=== PATIENT | male | born 1980 | race African-American/Black ===

== ENCOUNTER 2018-02-06 15:25 | Emergency (ER) | payer SELFPAY ==
[2018-02-06] MEDS ORDERED: Cephalexin CAP* 500 MG PO ONE (16:33)
--- NOTE | 2018-02-06 16:36 | ED ---
Skin Complaint - HPI Summary HPI Summary: Patient complains of possible abscess behind right ear 6 weeks. States it was small until a couple days ago when he tried to squeeze it and then it got worse quickly. Denies purulent discharge, ear pain, change in hearing, CARO, neck stiffness, fever, cough, sore throat, CP, SOB, N/V/D, abdominal pain, change in urine, change in BM. Medical history is none. - History of Current Complaint Chief Complaint: EDRashSkinAbscess Time Seen by Provider: 02/06/18 15:57 Stated Complaint: ABCESS ON BACK OF EAR Hx Obtained From: Patient Onset/Duration: Started Weeks Ago Timing: Constant Onset Severity: Mild Current Severity: None Pain Intensity: 0 Aggravating Symptom(s): Nothing Alleviating Symptom(s): Nothing Associated Signs & Symptoms: Negative - Allergy/Home Medications Allergies/Adverse Reactions: Allergies Allergy/AdvReac Type Severity Reaction Status Date / Time No Known Allergies Allergy Verified 02/06/18 15:34 PMH/Surg Hx/FS Hx/Imm Hx Endocrine/Hematology History: Denies: Hx Anticoagulant Therapy Cardiovascular History: Denies: Hx Cardiac Arrest History: Denies: Hx Dialysis Sensory History: Denies: Hx Eye Prosthesis Neurological History: Denies: Hx Dementia Psychiatric History: Denies: Hx Autism Infectious Disease History: No Infectious Disease History: Denies: Traveled Outside the [place] in Last 30 Days - Family History Known Family History: Positive: Non-Contributory - Social History Alcohol Use: Occasionally Substance Use Type: Reports: None Smoking Status (MU): Never Smoked Tobacco Review of Systems Constitutional: Negative Eyes: Negative ENT: Negative Cardiovascular: Negative Respiratory: Negative Gastrointestinal: Negative Genitourinary: Negative Musculoskeletal: Negative Skin: Other Neurological: Negative Psychological: Normal All Other Systems Reviewed And Are Negative: Yes Physical Exam - Summary Physical Exam Summary: Physical abscess just behind lower right ear. No change in hearing. No erythema over mastoid. No purulent discharge from abscess. Triage Information Reviewed: Yes Vital Signs On Initial Exam: Initial Vitals Temp Pulse Resp BP Pulse Ox 98.0 F 88 20 137/81 97 02/06/18 15:33 02/06/18 15:33 02/06/18 15:33 02/06/18 15:33 02/06/18 15:33 Vital Signs Reviewed: Yes Appearance: Positive: Well-Appearing Skin: Positive: Warm Head/Face: Positive: Normal Head/Face Inspection Eyes: Positive: Normal ENT: Positive: Normal ENT inspection Neck: Positive: Supple Respiratory/Lung Sounds: Positive: Clear to Auscultation Cardiovascular: Positive: Normal Abdomen Description: Positive: Nontender Musculoskeletal: Positive: Normal Neurological: Positive: Normal Psychiatric: Positive: Normal AVPU Assessment: Alert - [place] Coma Scale Best Eye Response: 4 - Spontaneous Best Motor Response: 6 - Obeys Commands Best Verbal Response: 5 - Oriented Coma Scale Total: 15 Procedures - Incision and Drainage 1 Site: behind right ear Anesthesia: Other - none Instrument(s): Scalpel Diagnostics - Vital Signs Vital Signs Temp Pulse Resp BP Pulse Ox 02/06/18 15:33 98.0 F 88 20 137/81 97 - Laboratory Lab Statement: Any lab studies that have been ordered have been reviewed, and results considered in the medical decision making process. Course/Dx - Course Course Of Treatment: Patient complains of possible abscess behind right ear 6 weeks. States it was small until a couple days ago when he tried to squeeze it and then it got worse quickly. Denies purulent discharge, ear pain, change in hearing, CARO, neck stiffness, fever, cough, sore throat, CP, SOB, N/V/D, abdominal pain, change in urine, change in BM. Medical history is none. Physical exam:Physical abscess just behind lower right ear. No change in hearing. No erythema over mastoid. No purulent discharge from abscess. Vital signs within normal limits. I&D performed. Rx for Keflex. - Diagnoses Provider Diagnoses: Abscess Discharge - Sign-Out/Discharge Documenting (check all that apply): Patient Departure - Discharge Plan Condition: Stable Disposition: HOME Prescriptions: Cephalexin CAP* [Keflex CAP*] 500 mg PO TID 7 Days #21 cap Patient Education Materials: Abscess (ED), Abscess Follow-up (ED) Referrals: No Primary Care Phys,NOPCP [Primary Care Provider] - Additional Instructions: Use warm compresses and warm shower water to help drain further. Keep wound open by pressing on it occasionally. Make sure to clean the area thoroughly with soap. Take antibiotics as directed. Return to the ED for any new or worsening symptoms. - Billing Disposition and Condition Condition: STABLE Disposition: Home
[2018-02-06 17:14] VITALS: BP 128/77
== END 2018-02-06 16:47 | disposition home or self-care (01) ==
LOC: ED 15:25
DX: H60.01 Abscess of right external ear (principal); L02.01 Cutaneous abscess of face
CPT/HCPCS: 10060; 99282; A9270-GY